=== PATIENT | female | born 1975 | race Caucasian/White ===

== ENCOUNTER 2022-01-17 19:17 | Emergency (ER) | payer OTHER ==
[~2022-01-17] VITALS: Ht 157.5 cm; Wt 59.0 kg
[2022-01-17 19:20] VITALS: BP 118/79
[2022-01-17 21:00] LABS: CLARITY URINE CLEAR (CLEAR); COLOR URINE YELLOW (YELLOW); KETONES URINE NEGATIVE (NEGATIVE); LEUKOCYTE ESTERASE URINE NEGATIVE (NEGATIVE); NITRITE URINE NEGATIVE (NEGATIVE); OCCULT BLOOD URINE NEGATIVE (NEGATIVE); PH URINE 6.5 (4.5-8.0); PROTEIN URINE NEGATIVE (NEGATIVE); SPECIFIC GRAVITY URINE 1.011 (1.005-1.030); UROBILINOGEN URINE 0.2 E.U./dL (0.2-1.0)
[2022-01-17 21:11] LABS: BASOPHILS % 0.2 % (0.0-2.0); EOSINOPHILS % 0.8 % (0.0-5.0); HEMATOCRIT. 34.1 % (36.0-48.0); HEMOGLOBIN. 11.7 g/dL (12.0-16.0); LYMPHOCYTES % 18.2 % (20.0-50.0); MEAN CORPUSCULAR HEMOGLOBIN 30.5 pg (28.0-32.0); MEAN CORPUSCULAR VOLUME 88.8 fL (81.0-99.0); MEAN PLATELET VOLUME 7.4 fl (7.4-10.4); MONOCYTES % 4.8 % (2.0-8.0); PLATELET 247 x1000/uL (130-400); RED BLOOD CELL COUNT 3.83 mill/uL (4.2-5.4); RED CELL DISTRIBUTION WIDTH 13.7 % (11.6-14.6)
[2022-01-17 21:22] LABS: HCG SCREEN NEGATIVE
[2022-01-17 21:23] LABS: CHLORIDE 104 mEq/L (98-107)
== END 2022-01-17 22:52 | disposition home or self-care (01) ==
LOC: ER 19:17
DX: K80.50 Calculus of bile duct without cholangitis or cholecystitis without obstruction (principal); D64.9 Anemia, unspecified; F32.9 Major depressive disorder, single episode, unspecified; Z88.0 Allergy status to penicillin
CPT/HCPCS: 36415; 76705; 80053; 81003; 81025; 84703; 85025; 93005; 99285